=== PATIENT | male | born 2005 | race Caucasian/White ===

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

== ENCOUNTER 2025-01-01 22:03 | Emergency (ER) | payer OTHER, SELFPAY ==
[2025-01-01 22:11] VITALS: BP 139/85; PULSE 94; RESP 16; TEMP 36.6; O2SAT 100; BMI 24.4
--- NOTE | 2025-01-01 22:37 | DI.CT.S_ITS ---
PROCEDURE: CT HEAD/BRAIN WO CON INDICATIONS: injury TECHNIQUE: Noncontrast 4.5 mm thick angled axial sections acquired from the foramen magnum to the vertex, with coronal and sagittal reformats. For radiation dose reduction, the following was used: automated exposure control, adjustment of mA and/or kV according to patient size. COMPARISON: None. FINDINGS: Image quality: Diagnostic CSF spaces: Basal cisterns are patent. Lateral ventricles are symmetric. Volume: Generally maintained. Brain: No intracranial hemorrhage. Payne-white differentiation is grossly maintained. Craniofacial structures: No displaced fracture. Sinuses are clear. Orbits are intact. IMPRESSION: No acute intracranial pathology. Dictated by: Tremaine Klein M.D. on 01/01/2025 at 22:38 Approved by: Tremaine Klein M.D. on 01/01/2025 at 22:39
[2025-01-01 23:38] VITALS: PULSE 77; O2SAT 99
[2025-01-01 23:39] VITALS: BP 134/84; PULSE 76; O2SAT 99
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
[2025-01-02] MEDS: ONDANSETRON 4 MG ODT PREPACK 1 BOTTLE MISC (00:49)
== END 2025-01-02 01:03 | disposition home or self-care (01) ==
PROVIDERS: Emergency Provider Student in an Organized Health Care Education/Training Program; PCP Family Medicine
DX: S09.90XA Unspecified injury of head, initial encounter (principal); W22.8XXA Striking against or struck by other objects, initial encounter; R11.0 Nausea; R29.700 NIHSS score 0
CPT/HCPCS: 70450; 99281; 99284